=== PATIENT | male | born 1980 | race American Indian/Alaskan Native ===

== ENCOUNTER 2017-01-20 10:31 | Emergency (ER) | payer MEDICAID, OTHER ==
[2017-01-20 10:41] VITALS: BP 141/97; PULSE 75; RESP 18; TEMP 97.9; O2SAT 100
--- NOTE | 2017-01-20 11:03 | C.PDOC ---
History Of Present Illness 36 y/o male c/o diarrhea x 2 days, 3 watery brown bm today, with no abdominal pain, fever or chills, no vomiting, eating well. pt also c/o scratchy throat, mild dry cough, and runny nose. no sick contacts. pt requesting HIV test, advised to f/u in Medical clinic for that. Time Seen by Provider: 01/20/17 10:45 Chief Complaint (Nursing): Cough, Cold, Congestion History/Exam Limitations: no limitations Onset/Duration Of Symptoms: Days Current Symptoms Are (Timing): Still Present Past Medical History Reviewed: Historical Data, Nursing Documentation, Vital Signs Vital Signs: Last Vital Signs Temp 97.9 F 01/20/17 10:39 Pulse 75 01/20/17 10:39 Resp 18 01/20/17 10:39 BP 141/97 H 01/20/17 10:39 Pulse Ox 100 01/20/17 13:05 Surgical History: No Surg Hx Family History: States: Unknown Family Hx - Social History Hx Alcohol Use: No Hx Substance Use: No - Immunization History Hx Tetanus Toxoid Vaccination: Yes Hx Influenza Vaccination: No Hx Pneumococcal Vaccination: No Review Of Systems Constitutional: Negative for: Fever, Chills, Sweats ENT: Positive for: Nose Discharge (clear), Other (scratchy throat) Cardiovascular: Negative for: Chest Pain Respiratory: Positive for: Cough (mild and dry). Negative for: Shortness of Breath Gastrointestinal: Positive for: Diarrhea (2 days and for three days watery and brown bm today ), Hematemesis. Negative for: Nausea, Vomiting, Abdominal Pain, Constipation Skin: Negative for: Rash Physical Exam - Physical Exam Appears: Non-toxic, No Acute Distress Skin: Warm, Dry Head: Atraumatic, Normacephalic Eye(s): bilateral: PERRL, EOMI Ear(s): Bilateral: Normal Oral Mucosa: Moist Throat: Normal, No Erythema Neck: Supple Chest: Symmetrical Cardiovascular: Rhythm Regular Respiratory: No Rales, No Rhonchi, No Wheezing Gastrointestinal/Abdominal: Soft, No Tenderness, No Guarding, No Rebound Extremity: Normal ROM, Capillary Refill (<2sec.) Neurological/Psych: Oriented x3, Normal Speech, Normal Cognition Gait: Steady ED Course And Treatment O2 Sat by Pulse Oximetry: 100 (RA) Progress Note: The patient is resting comfortably. The patient is afebrile and is PO tolerant. The patient is advised to have a follow up with the PMD for further evaluation. Medical Decision Making Medical Decision Making: pt with diarrhea, sore throat, runny nose and cough. supportive care for viral syndrome. Disposition Counseled Patient/Family Regarding: Diagnosis, Need For Followup - Disposition Referrals: [facility] at [facility] [Outside] Disposition: HOME/ ROUTINE Disposition Time: 11:03 Condition: STABLE Additional Instructions: Follow up in medical clinic in a few days- you can also get HIV testing done there. Eat low fiber foods for a few days to help with diarrhea- Rice, banana and applesauce recommended. Drink increased fluids to make up for water loss from diarrhea. Return to ER for any worse symptoms. Instructions: Viral Syndrome (ED) Forms: [employer] [facility] (Frisian) - Clinical Impression Clinical Impression: Viral syndrome - PA / LICENSED INSURANCE AGENT / Resident Statement MD/DO has reviewed & agrees with the documentation as recorded. MD/DO has examined the patient and agrees with the treatment plan. - Scribe Statement Bianca Hernadez All medical record entries made by the Scribe were at my direction and personally dictated by me. I have reviewed the chart and agree that the record accurately reflects my personal performance of the history, physical exam, medical decision making, and the department course for this patient. I have also personally directed, reviewed, and agree with the discharge instructions and disposition.
== END 2017-01-20 11:21 | disposition home or self-care (01) ==
LOC: C.ER 10:31
DX: B34.9 Viral infection, unspecified (principal)

== ENCOUNTER 2018-03-02 14:11 | Emergency (ER) | payer OTHER ==
[2018-03-02 15:08] VITALS: BP 122/71; PULSE 72; RESP 18; TEMP 98.6; O2SAT 99
--- NOTE | 2018-03-02 16:06 | C.PDOC ---
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 Patient denies any trauma, fever, weakness, numbness, or tingling. Patient did not take any pain medications. Time Seen by Provider: 03/02/18 15:33 Chief Complaint (Nursing): Lower Extremity Problem/Injury History Per: Patient History/Exam Limitations: no limitations Onset/Duration Of Symptoms: Hrs Current Symptoms Are (Timing): Still Present Past Medical History Reviewed: Historical Data, Nursing Documentation, Vital Signs Vital Signs: Last Vital Signs Temp 98.6 F 03/02/18 15:04 Pulse 72 03/02/18 15:04 Resp 18 03/02/18 15:04 BP 122/71 03/02/18 15:04 Pulse Ox 99 03/02/18 15:04 Family History: States: No Known Family Hx - Social History Hx Alcohol Use: No Hx Substance Use: No - Immunization History Hx Tetanus Toxoid Vaccination: Yes Hx Influenza Vaccination: No Hx Pneumococcal Vaccination: No Review Of Systems Constitutional: Negative for: Fever Cardiovascular: Negative for: Chest Pain Respiratory: Negative for: Shortness of Breath Gastrointestinal: Negative for: Abdominal Pain Musculoskeletal: Positive for: Other (Right knee pain and swelling) Skin: Negative for: Rash Neurological: Negative for: Weakness, Numbness Physical Exam - Physical Exam Appears: Non-toxic, No Acute Distress Skin: Warm, Dry Head: Atraumatic, Normacephalic Eye(s): bilateral: Normal Inspection Extremity: No Normal ROM (mild dec rom right knee, all others from), Tenderness (diffusely to right knee), Swelling (right knee) Pulses: Left Dorsalis Pedis: Normal, Right Dorsalis Pedis: Normal Neurological/Psych: Oriented x3, Normal Speech, Normal Cognition, Normal Motor, Normal Sensation Gait: Steady ED Course And Treatment O2 Sat by Pulse Oximetry: 99 (RA) Pulse Ox Interpretation: Normal Medical Decision Making Medical Decision Making: Plan: --Elia bandage --Toradol --Cold compress On re-evaluation, patient is resting comfortably, and is in no acute distress. Patient will be discharged home and is instructed to follow up with Dr. Mcclain in 1-2 days for further evaluation. will give toradol, elia bandage,cold compress and f/u with Dr Mcclain. Disposition Counseled Patient/Family Regarding: Diagnosis, Need For Followup, Rx Given - Disposition Referrals: Shruthi Mcclain MD [Staff Provider] - Disposition: HOME/ ROUTINE Disposition Time: 16:14 Condition: GOOD Additional Instructions: Wear elia bandage to help with swelling. Cold compresses to right knee several times a day. Take ibuprofen for pain. Follow up with Dr Mcclain; call for an appointment. Prescriptions: Ibuprofen [Motrin] 600 mg PO TID #30 tab Instructions: Knee Pain (DC) Forms: General Discharge Instructions, [facility] (Tajik), Work Excuse - Clinical Impression Clinical Impression: Effusion, right knee - PA / MEDICAL RECORDS COORDINATOR / Resident Statement MD/DO has reviewed & agrees with the documentation as recorded. - Scribe Statement The provider has reviewed the documentation as recorded by the Scribe Manju Marshall All medical record entries made by the Scribe were at my direction and personally dictated by me. I have reviewed the chart and agree that the record accurately reflects my personal performance of the history, physical exam, medical decision making, and the department course for this patient. I have also personally directed, reviewed, and agree with the discharge instructions and disposition.
== END 2018-03-02 16:39 | disposition home or self-care (01) ==
LOC: C.ER 14:11
DX: M25.461 Effusion, right knee (principal)
CPT/HCPCS: 96372; 99284; J1885

== ENCOUNTER 2018-06-03 10:06 | Emergency (ER) | payer OTHER ==
[2018-06-03 10:19] VITALS: RESP 18
--- NOTE | 2018-06-03 10:35 | C.PDOC ---
History Of Present Illness 38 y/o male presents to the ED complaining left chest wall pain for the past 2-3 days. Patient has also developed back pain, and he notes the chest/back pain worsen when coughing. He admits to dry cough for several days now. No fever. Patient complains of diffuse body aches as well but primarily complains of chest pain. Otherwise he denies any neck pain, SOB, KURTZ, nausea, vomiting, diarrhea, or abdominal pain. Patient did not receive flu shot this year. Time Seen by Provider: 06/03/18 10:26 Chief Complaint (Nursing): Chest Pain History Per: Patient History/Exam Limitations: no limitations Onset/Duration Of Symptoms: Days Current Symptoms Are (Timing): Still Present Associated Symptoms: Other (Coughing) Past Medical History Reviewed: Historical Data, Nursing Documentation, Vital Signs Vital Signs: Last Vital Signs Temp 98.7 F 06/03/18 10:17 Pulse 80 06/03/18 10:17 Resp 18 06/03/18 10:17 BP 136/108 H 06/03/18 10:17 Pulse Ox 100 06/03/18 10:17 Surgical History: No Surg Hx Family History: States: Unknown Family Hx - Social History Hx Tobacco Use: Yes Hx Alcohol Use: No Hx Substance Use: No - Immunization History Hx Tetanus Toxoid Vaccination: Yes Hx Influenza Vaccination: No Hx Pneumococcal Vaccination: No Review Of Systems Except As Marked, All Systems Reviewed And Found Negative. Constitutional: Negative for: Fever, Chills Cardiovascular: Positive for: Chest Pain (worse with cough). Negative for: Palpitations Respiratory: Positive for: Cough. Negative for: Shortness of Breath, SOB with Excertion Gastrointestinal: Negative for: Nausea, Vomiting, Abdominal Pain, Diarrhea Musculoskeletal: Positive for: Back Pain (worse with cough). Negative for: Neck Pain Neurological: Negative for: Weakness, Numbness, Dizziness Physical Exam - Physical Exam Appears: Non-toxic, No Acute Distress, Other (Hypertensive on arrival, Afebrile) Skin: Warm, Dry, No Diaphoretic Head: Atraumatic, Normacephalic Eye(s): bilateral: Normal Inspection, PERRL, EOMI Nose: Normal Oral Mucosa: Moist Neck: Normal ROM Chest: Symmetrical, No Tenderness, No Ecchymosis Cardiovascular: Rhythm Regular, No Murmur, No JVD Respiratory: No Rales, No Rhonchi, No Wheezing, Other (Lungs clear to auscultation bilaterally) Gastrointestinal/Abdominal: Soft, No Tenderness, No Distention Extremity: Normal ROM, No Calf Tenderness, No Deformity, No Swelling (no pitting edema) Pulses: Left Dorsalis Pedis: Normal, Right Dorsalis Pedis: Normal Neurological/Psych: Oriented x3, Normal Cranial Nerves ED Course And Treatment - Laboratory Results Result Diagrams: 06/03/18 11:18 06/03/18 11:18 ECG: Interpreted By Me ECG Rhythm: Sinus Rhythm Interpretation Of ECG: No ST elevations or depressions, Flipped Ts in inferior leads Rate From EC O2 Sat by Pulse Oximetry: 100 (RA) Pulse Ox Interpretation: Normal Medical Decision Making Medical Decision Making: Impression: Chest pain and back pain, associated with cough Initial Plan: - EKG - Chest x-ray - Basic blood work - Troponin - 975 mg PO Tylenol - 600 mg PO Motrin - 200 mg PO Tessalon Perles - Reassess Disposition Counseled Patient/Family Regarding: Diagnosis, Need For Followup, Rx Given - Disposition Referrals: [facility] [Outside] Disposition: HOME/ ROUTINE Disposition Time: 11:53 Condition: STABLE Prescriptions: Benzonatate [Tessalon Perles] 200 mg PO TID #30 sgl Ibuprofen [Motrin] 600 mg PO TID #15 tab Instructions: Viral Syndrome (DC) Forms: [facility] (Greek), General Discharge Instructions - POA Present On Arrival: None - Clinical Impression Clinical Impression: Viral illness, Chest pain, Cough - Scribe Statement The provider has reviewed the documentation as recorded by the Leonardo Turner Provider Attestation: All medical record entries made by the Leonardo were at my direction and personally dictated by me. I have reviewed the chart and agree that the record accurately reflects my personal performance of the history, physical exam, medical decision making, and the department course for this patient. I have also personally directed, reviewed, and agree with the discharge instructions and disposition.
[2018-06-03 11:22] LABS: BASO % 0.5 % (0.0-2.0); EOS # 0.1 K/uL (0.0-0.7); EOS % 1.3 % (0.0-4.0); HEMOGLOBIN 16.5 g/dL (12.0-18.0); LYMPH # 1.5 K/uL (1.0-4.3); LYMPH % 24.6 % (20.0-40.0); MEAN CORPUSCULAR HEMOGLOBIN 31.2 pg (27.0-31.0); MEAN CORPUSCULAR HGB CONC 33.7 g/dL (33.0-37.0); MEAN PLATELET VOLUME 8.1 fL (7.2-11.7); MONO # 0.4 K/uL (0.0-0.8); MONO % 6.1 % (0.0-10.0); NEUT % 67.5 % (50.0-75.0); NRBC % 0.2 % (0.0-2.0); RBC 5.29 Mil/uL (4.40-5.90); RED CELL DISTRIBUTION WIDTH 14.1 % (11.5-14.5)
[2018-06-03 11:23] LABS: MEAN CELL VOLUME 92.4 fL (80.0-94.0)
[2018-06-03 11:36] LABS: BLOOD UREA NITROGEN 10 mg/dL (9-20); CALCIUM 8.9 mg/dl (8.6-10.4); GFR NON-AFRICAN AMERICAN > 60
--- NOTE | 2018-06-03 12:14 | RAD ---
Date of service: 06/03/2018 HISTORY: Cough COMPARISON: No prior. TECHNIQUE: Chest PA and lateral FINDINGS: LINES AND TUBES: None. LUNG AND PLEURA: The lungs are well inflated. There is bibasilar atelectasis. No pleural effusion or pneumothorax. HEART AND MEDIASTINUM: The heart is not enlarged. No aortic atherosclerotic calcifications present. The hilar and mediastinal contours are within normal limits. SKELETAL STRUCTURES: The bony structures are within normal limits for the patient's age. VISUALIZED UPPER ABDOMEN: Normal. OTHER FINDINGS: None. IMPRESSION: No active pulmonary disease.
[2018-06-03 12:25] VITALS: BP 149/91; PULSE 75; TEMP 98.6; O2SAT 98
--- NOTE | 2018-06-04 19:47 | CARD ---
APPROVED REPORT Date of service: 06/03/2018 EKG Measurement Heart [id number] <Conclusion> Normal sinus rhythm Left axis deviation Moderate voltage criteria for LVH, may be normal variant Abnormal ECG
== END 2018-06-03 12:24 | disposition home or self-care (01) ==
LOC: C.ER 10:06
DX: B34.9 Viral infection, unspecified (principal); R07.9 Chest pain, unspecified; R05 Cough